=== PATIENT | female | born 1970 | race Caucasian/White ===

== ENCOUNTER 2019-07-16 15:44 | Emergency (ER) | payer OTHER, SELFPAY ==
--- NOTE | ~2019-07-16 | XR_ITS ---
EXAMINATION: XR chest 2V EXAM DATE: 07/16/2019 17:16 INDICATION: High blood pressure. Neck pain, shoulder pain. Hand paresthesia. TECHNIQUE: Frontal and lateral projections of the chest obtained and reviewed. Comparison is made to prior examination from 12/03/2018. FINDINGS: The lungs are clear. There are no pleural effusions. The cardiomediastinal silhouette is within normal limits. There is no pneumothorax suspected. The bones and soft tissues are unremarkab le. IMPRESSION: No acute cardiopulmonary findings. Reviewed, dictated and finalized at location A.
--- NOTE | ~2019-07-16 | CT_ITS ---
EXAMINATION: CT brain wo con EXAM DATE: 07/16/2019 17:09 INDICATION: Tingling to face, paresthesia. History of brain tumor. TECHNIQUE: Spiral CT of the head was performed without contrast. Axial, coronal and sagittal images were reviewed. The dose-length product (DLP) for this examination was 605.33 mGy-cm. The exposure w as tailored according to patient size, and iterative reconstruction (ASIR) was used as additional dos e reduction technique. There is no prior study for comparison. FINDINGS: There is a round heterogeneous density mass measuring 3.2 cm in the anterior aspect of the right temporal fossa which is most likely exophytic, displacing brain parenchyma, most likely a menin gioma but patient reportedly has known diagnosis so please clinically correlate. Prominent frontal extra-axial spaces. There is no acute intraparenchymal hemorrhage. No evidence of acute infarction. There is no mass effect or midline shift. The ventricles are normal in size. The re are no extra-axial collections. There are no acute calvarial fractures. The orbits are unremarkab le. Soft tissue is unremarkable. The visualized sinuses and mastoid air cells are well aerated. IMPRESSION: 1. No acute intracranial findings. 2. Right anterior temporal fossa mass most likely exophytic dural based meningioma. Clinical correla tion. Reviewed, dictated and finalized at location A. IMPRESSION: 1. No acute intracranial findings. 2. Right anterior temporal fossa mass most likely exophytic dural based mening ioma. Clinical correlation.
[2019-07-16 15:50] VITALS: BP 138/98; PULSE 100; RESP 18; TEMP 36.4; O2SAT 100
[2019-07-16 16:22] VITALS: BP 142/115; PULSE 59; RESP 22; O2SAT 100
--- NOTE | 2019-07-16 16:43 | ECG_ITS ---
Measurements Intervals [place] Rate: 79 P: 75 AL: 176 QRS: 17 QRSD: 84 T: 66 QT: 398 QTc: 456 Interpretive Statements SINUS RHYTHM DELAYED PRECORDIAL R/S TRANSITION BORDERLINE ST-T WAVE ABNORMALITY- LATERAL LEADS BASELINE WANDER- I, II, III BORDERLINE ECG Electronically Signed On 07-17-2019 7:03:42 CDT by Robbie Thomas D.O.
--- NOTE | 2019-07-16 16:44 | ED.GENADULT ---
HPI - General Adult General Chief complaint: Neuro Symptoms/Deficit Stated complaint: Tingling to Face Time Seen by Provider: 07/16/19 16:28 Source: patient Mode of arrival: ambulatory Limitations: no limitations History of Present Illness HPI narrative: Patient is a 48-year-old female with a history of meningioma who recently relocated to this area from [place] who presents for evaluation of muscle spasm, shoulder pain and neck pain. Patient reports she was raking leaves yesterday, onset of pain was today with severe worsening with movement. It is a sharp shooting pain in her right neck and arm. Patient reportedly with a history of meningioma that have been monitored in [place] every year, presents with new right shoulder pain, tingling sensation on the right side of her neck. No headache or vision changes. No nausea or vomiting. Patient reports bilateral muscle spasm in both hands, weakness and numbness in her lower legs. Patient denies chest pain or shortness of breath. No belly pain. Onset of symptoms approximately 3 hours ago. Related Data Home Medications Medication Instructions Recorded Confirmed amlodipine 07/16/19 atorvastatin 07/16/19 hydrochlorothiazide 07/16/19 hydrocodone-acetaminophen tablet 07/16/19 irbesartan mg 07/16/19 levothyroxine 07/16/19 lorazepam 07/16/19 venlafaxine mg PO 07/16/19 venlafaxine mg PO 07/16/19 Allergies Allergy/AdvReac Type Severity Reaction Status Date / Time Sulfa (Sulfonamide Allergy Unknown Verified 07/16/19 15:55 Antibiotics) Review of Systems Review of Systems: Narrative: CONSTITUTIONAL: Denies fever, chills, or sweats. EYES: Denies visual changes, redness, or discharge. ENT: Denies rhinorrhea, congestion, sore throat, or otalgia. CARDIOVASCULAR: Denies chest pain, palpitations, or edema. RESPIRATORY: Denies cough or dyspnea. GASTROINTESTINAL: Denies abdominal pain, nausea, vomiting, or diarrhea. GENITOURINARY: Denies dysuria or hematuria. SKIN: Denies rash or itching. MUSCULOSKELETAL: Denies back pain, reports right shoulder pain, reports myalgias, hand spasm bilaterally NEUROLOGIC: Denies headache, reports numbness and weakness in bilateral upper and lower extremities PSYCHIATRIC: Reports history of anxiety PMFSH Past Medical History Medical History (Updated 07/16/19 @ 20:54 by Tanja Solo MD) Anxiety Meningioma Surgical History Surgical History (Updated 07/16/19 @ 16:47 by Tanja Solo MD) H/O thyroidectomy H/O tubal ligation History of cholecystectomy Family History Family History (Updated 10/09/11 @ 11:52 by DOCTOR UNKNOWN) Other Diabetes mellitus Family history of elevated blood lipids Hypertension Social History Social History (Updated 07/16/19 @ 16:47 by Tanja Solo MD) Smoking status: Current every day smoker Alcohol intake: current Substance use: never Gender identity (if verbalized by the patient): Female Exam Narrative: Exam Narrative: GENERAL: Tearful, hyperventilating, alert HEAD: Normocephalic, atraumatic. EYES: PERRLA and EOMI. ENT: Nares clear, no rhinorrhea or epistaxis. Mucous membranes moist. NECK: Supple. CHEST: Tachypneic, no respiratory distress, hyperventilating HEART: Regular rate, sinus rhythm ABDOMEN:Non distended, non tender EXTREMITIES: Decreased range of motion bilateral hands, lower extremities, no edema. Bilateral hand contractures. Reproducible pain to the right trapezius which exactly reproduces muscle pain patient is experiencing. SKIN: Warm, dry, no rash. NEURO: Cannot complete [id number] bilaterally. EOMs intact without nystagmus. No facial droop/asymmetry noted bilaterally. Grimace intact. Intact sensation in face. Hearing intact bilaterally. Shoulder shrug intact. Strength 5/5 bilateral upper extremities. 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 Strength 5/5 bilateral lower extremities. Not complete [id number]. Ambulatory exam deferred. Course Марина
[2019-07-16] MEDS: LORAZEPAM INJ 2 MG/ML VIAL 1 MG IV PUSH (16:59)
[2019-07-16] MEDS: SODIUM CHLORIDE 0.9% IV 1,000 ML 999 ML IV CONT (16:59)
[2019-07-16 17:01] LABS: Basophils Absolute Auto 0.2 K/mm3 (0.0-0.1); Basophils Percent Auto 1.3 % (0.2-1.2); Eosinophils Absolute Auto 1.2 K/mm3 (0-0.3); Eosinophils Percent Auto 6.6 % (0-4.4); Hematocrit 49.6 % (37.0-47.0); Hemoglobin 16.8 g/dL (12.0-15.0); Immature Granulocyte Percent A 0.5 % (0-0.5); Lymphocytes Absolute Auto 5.01 K/mm3 (0.9-3.2); Lymphocytes Percent Auto 27.2 % (18.3-44.2); Mean Corpuscular HGB Conc 33.9 g/dl (32-36); Mean Corpuscular Hemoglobin 30.1 pg (26-34); Mean Corpuscular Volume 88.7 fl (80-100); Mean Platelet Volume 9.2 fl (7.4-10.4); Monocytes Absolute Auto 1.1 K/mm3 (0.1-0.6); Monocytes Percent Auto 5.7 % (2.6-8.5); Neutrophils Absolute Auto 10.8 K/mm3 (1.3-6.7); Neutrophils Percent Auto 58.7 % (45.5-73.1); Platelet Count Result 438 k/mm3 (150-375); Red Blood Count 5.59 M/mm3 (4.2-5.4); Red Cell Distribution Width 13.9 % (11.5-14.5); White Blood Count 18.4 K/mm3 (4.5-10.0)
[2019-07-16 17:11] LABS: Prothrombin Time 12.4 Seconds (11.1-14.7)
[2019-07-16 17:12] LABS: Partial Thromboplastin Time 28.5 SECONDS (22.3-36.8)
[2019-07-16 17:40] LABS: Alanine Aminotransferase 28 U/L (4-35); Alkaline Phosphatase 161 U/L (38-126); Aspartate Amino Transferase 29 U/L (14-36); Bilirubin,Total 0.7 mg/dL (0.2-1.3); Blood Urea Nitrogen 12 mg/dL (7-17); Calcium 10.4 mg/dL (8.4-10.2); Carbon Dioxide 24 mmol/L (22-30); Chloride 102 mmol/L (98-107); Estimated CRCL calculation 66 ml/min; Estimated Glomerular Filt Rate 59; Glucose 133 mg/dL (65-105); Potassium 3.5 mmol/L (3.4-5.0); Sodium 139 mmol/L (137-145)
[2019-07-16 17:49] LABS: Troponin I < 0.012 ng/mL (0.000-0.034)
[2019-07-16 17:58] VITALS: BP 152/76; PULSE 82; RESP 16; O2SAT 98
[2019-07-16 19:45] LABS: Add Urine Microscopic? NO; Appearance Urine Clear (Clear); Bilirubin Urine Negative (Negative); Blood Urine Negative (Negative); Color Urine Straw (Yellow); Glucose Urine UA Negative (Negative); Ketones Urine Negative (Negative); Leukocyte Esterase Ur Negative LEU/UL (Negative); Nitrate Urine Negative (Negative); Protein Urine Negative (Negative); Specific Grav Ur 1.011 (1.001-1.035); Urobilinogen Urine Negative mg/dL (<2.0)
[2019-07-16 20:17] VITALS: BP 148/76; PULSE 82; RESP 16; O2SAT 98
[2019-07-16] MEDS: DIAZEPAM 5 MG TABLET PO (20:59)
[2019-07-16 21:00] VITALS: BP 131/89; PULSE 69; RESP 15; O2SAT 99
[2019-07-16 21:15] VITALS: BP 137/91; PULSE 86; RESP 18; TEMP 36.8; O2SAT 98
== END 2019-07-16 21:16 | disposition home or self-care (01) ==
PROVIDERS: Emergency Medicine; Emergency Provider Emergency Medicine; PCP Emergency Medicine
DX: D32.9 Benign neoplasm of meninges, unspecified (principal); F41.9 Anxiety disorder, unspecified; E89.0 Postprocedural hypothyroidism; F17.200 Nicotine dependence, unspecified, uncomplicated; R94.31 Abnormal electrocardiogram [ECG] [EKG]
CPT/HCPCS: 36415; 70450; 71046; 80053; 81003; 84484; 85025; 85610; 85730; 93005; 96361; 96374; 96375; 99284; A9270; J1200; J2060; J7030

== ENCOUNTER 2019-09-13 09:40 | Outpatient (CLI) | payer OTHER, SELFPAY ==
--- NOTE | ~2019-09-13 | MR_ITS ---
EXAMINATION: MR brain/brain stem wo/w con DATE: 09/13/2019 10:41 INDICATION: Benign neoplasm of the cerebral meninges. TECHNIQUE: Magnetic resonance imaging (MRI) of the brain and brainstem was performed without and with 15 mL Multihance intravenous contrast. Sequences included sagittal and axial T1-weighted SE, axial d iffusion-weighted FS SE, axial T2*-weighted GRE, axial T2-weighted FLAIR, and axial T2-weighted FSE. Postcontrast axial, sagittal and coronal T1-weighted SE was obtained. Apparent diffusion coefficient (ADC) maps were created. COMPARISON: Head CT dated 07/26/2019 FINDINGS: There are no areas of restricted diffusion to suggest acute infarction. No intracranial hemorrhage. T here is an avidly enhancing 3.6 x 3.6 x 3.9 cm extra-axial dural-based mass in the right middle crani al fossa which demonstrates an enhancing dural tail most consistent with a meningioma. The lesion kecia sured 3.9 x 3.6 x 3.5 cm in corresponding dimensions on prior CT. No other abnormally enhancing lesio ns identified. Exerts mass effect upon the anterior right temporal lobe which appears otherwise unrem arkable with normal signal and bobby-white matter differentiation. There are no intraparenchymal signa l abnormalities seen on the other pulse sequences. The ventricles are symmetric and normal in size. T here are no abnormal extra-axial fluid collections. Flow voids are seen in the cerebral arteries on t he T2-weighted sequences consistent with their expected patency. Visualized orbits and soft tissues a re unremarkable. IMPRESSION: 1. No significant interval change in a 3.9 x 3.6 x 3.6 cm enhancing dural based mass in the right mid dle cranial fossa most consistent with a meningioma. Otherwise unremarkable brain MR. Reviewed, dictated and finalized at location A. IMPRESSION: 1. No significant interval change in a 3.9 x 3.6 x 3.6 cm enhancing dural based mass in the right middle cranial fossa most consistent with a meningioma. Othe rwise unremarkable brain MR.
[2019-09-13 10:15] LABS: Estimated Glomerular Filt Rate 59
== END 2019-09-13 09:41 | disposition home or self-care (01) ==
LOC: ANHIMG 09:50
PROVIDERS: PCP Emergency Medicine; Visit Provider Emergency Medicine
DX: D32.0 Benign neoplasm of cerebral meninges (principal)
CPT/HCPCS: 36415; 70553; A9577

== ENCOUNTER 2019-09-16 10:50 | Outpatient (CLI) | payer OTHER, SELFPAY ==
[2019-09-16 11:48] LABS: Basophils Absolute Auto 0.2 K/mm3 (0.0-0.1); Basophils Percent Auto 1.3 % (0.2-1.2); Eosinophils Absolute Auto 0.6 K/mm3 (0-0.3); Eosinophils Percent Auto 4.1 % (0-4.4); Hematocrit 47.4 % (37.0-47.0); Hemoglobin 15.3 g/dL (12.0-15.0); Immature Granulocyte Absolute 0.07 K/mm3 (0.00-0.031); Immature Granulocyte Percent A 0.5 % (0-0.5); Lymphocytes Absolute Auto 2.89 K/mm3 (0.9-3.2); Lymphocytes Percent Auto 20.5 % (18.3-44.2); Mean Corpuscular HGB Conc 32.3 g/dl (32-36); Mean Corpuscular Hemoglobin 30.1 pg (26-34); Mean Corpuscular Volume 93.1 fl (80-100); Mean Platelet Volume 8.8 fl (7.4-10.4); Monocytes Absolute Auto 0.8 K/mm3 (0.1-0.6); Monocytes Percent Auto 5.3 % (2.6-8.5); Neutrophils Absolute Auto 9.6 K/mm3 (1.3-6.7); Neutrophils Percent Auto 68.3 % (45.5-73.1); Platelet Count Result 316 k/mm3 (150-375); Red Blood Count 5.09 M/mm3 (4.2-5.4); Red Cell Distribution Width 14.3 % (11.5-14.5); White Blood Count 14.1 K/mm3 (4.5-10.0)
[2019-09-16 11:58] LABS: Add Urine Microscopic? NO; Appearance Urine Clear (Clear); Bacteria Urine Trace /hpf; Bilirubin Urine Negative (Negative); Blood Urine Negative (Negative); Color Urine Yellow (Yellow); Glucose Urine UA Negative (Negative); Ketones Urine Negative (Negative); Leukocyte Esterase Ur Negative LEU/UL (Negative); Mucus Urine Rare /lpf; Nitrate Urine Negative (Negative); Protein Urine Negative (Negative); RBC Urine 0-2 /hpf (0-2); Specific Grav Ur 1.018 (1.001-1.035); Squamous Epithelial Cell Urine Many /hpf (Few); Urobilinogen Urine Negative mg/dL (<2.0); WBC Urine 0-3 /hpf
[2019-09-16 12:04] LABS: Alanine Aminotransferase 37 U/L (4-35); Albumin Level 4.8 g/dL (3.5-5.1); Alkaline Phosphatase 121 U/L (38-126); Aspartate Amino Transferase 34 U/L (14-36); Bilirubin,Total 0.4 mg/dL (0.2-1.3); Blood Urea Nitrogen 15 mg/dL (7-17); Calcium 9.4 mg/dL (8.4-10.2); Carbon Dioxide 29 mmol/L (22-30); Chloride 105 mmol/L (98-107); Cholesterol 175 mg/dL (0-200); Creatine Kinase 62 U/L (30-135); Estimated Glomerular Filt Rate 59; Glucose 121 mg/dL (65-105); HDL Direct 34 mg/dL; Phosphorus 4.3 mg/dL (2.5-4.5); Sodium 143 mmol/L (137-145); Triglycerides 287 mg/dL (<150)
[2019-09-16 12:15] LABS: LDL Cholesterol Direct 86 mg/dL
[2019-09-16 12:24] LABS: Iron 81 ug/dL (37-170)
[2019-09-16 12:33] LABS: Percent Iron Saturation 24 % (20-50)
[2019-09-16 12:49] LABS: Parathyroid Intact 56.5 pg/mL (7.5-53.5); Vitamin D 25 Hydroxy 36.9 ng/mL
[2019-09-16 13:10] LABS: Folic Acid 13.3 ng/mL (2.76->20)
== END 2019-09-16 10:51 | disposition home or self-care (01) ==
LOC: ANHLAB 10:55
PROVIDERS: PCP Emergency Medicine; Visit Provider Emergency Medicine
DX: D32.0 Benign neoplasm of cerebral meninges (principal); D72.829 Elevated white blood cell count, unspecified; D75.1 Secondary polycythemia; E03.9 Hypothyroidism, unspecified; E55.9 Vitamin D deficiency, unspecified; E78.5 Hyperlipidemia, unspecified; F41.1 Generalized anxiety disorder; G89.4 Chronic pain syndrome; I10 Essential (primary) hypertension
CPT/HCPCS: 36415; 80061; 80069; 80076; 81003; 82306; 82330; 82550; 82607; 82728; 82746; 83540; 83550; 83735; 83970; 84443; 85025

== ENCOUNTER 2019-12-08 11:02 | Outpatient (CLI) | payer OTHER, SELFPAY ==
[2019-12-08 11:53] LABS: Hemoglobin A1C 5.8 % (<5.7)
[2019-12-08 11:57] LABS: Alanine Aminotransferase 60 U/L (4-35); Albumin Level 4.3 g/dL (3.5-5.1); Alkaline Phosphatase 128 U/L (38-126); Aspartate Amino Transferase 44 U/L (14-36); Bilirubin,Total 0.4 mg/dL (0.2-1.3); Glucose 123 mg/dL (65-105)
[2019-12-08 12:09] LABS: Parathyroid Intact 60.3 pg/mL (7.5-53.5)
[2019-12-10 17:52] LABS: Hepatitis C Viral RNA PCR 16 IU/mL
== END 2019-12-08 11:03 | disposition home or self-care (01) ==
PROVIDERS: PCP Emergency Medicine; Visit Provider Emergency Medicine
DX: K76.9 Liver disease, unspecified (principal); R73.9 Hyperglycemia, unspecified
CPT/HCPCS: 36415; 80076; 82947; 83036; 83970; 87522

== ENCOUNTER 2020-01-05 09:05 | Outpatient (CLI) | payer OTHER, SELFPAY ==
--- NOTE | ~2020-01-05 | US_ITS ---
EXAMINATION: US abdomen complete DATE: 01/05/2020 10:16 INDICATION: Liver disease TECHNIQUE: Multiple grayscale and Doppler ultrasound images of the abdomen were obtained. COMPARISON: None FINDINGS: Visualized portion of the body of the pancreas is normal. The pancreatic head and tail are not visual ized. Visualized proximal inferior vena cava is normal. Liver has normal contour, with a smooth surfa ce. There is increased parenchymal echogenicity and coarsened echotexture consistent with diffuse hep atic steatosis. No liver lesion identified. No intrahepatic biliary duct dilation suspected. Portal venous flow was seen in the hepatopetal, normal direction and has normal Doppler waveform. Gallbladde r is not visualized and reportedly surgically absent. The common bile duct measures up to 7 mm diamet er which is within normal limits post cholecystectomy. Atherosclerotic abdominal aorta is normal in d iameter measuring 3.4 similar approximately tapering to 1.8 cm distally. Portions of the mid aorta ob scured by shadowing bowel gas. There is normal renal contour and echogenicity bilaterally. The right kidney measures 9.1 x 4.5 x 5.1 cm and the left 10.6 x 5.2 x 5.8 cm. There are no focal renal lesion s identified. There is no hydronephrosis. Spleen is normal measuring 4.3 cm in maximal length. IMPRESSION: 1. Diffuse hepatic steatosis. 2. Mild dilation of the common bile duct to 7 mm which is within normal limits post cholecystectomy. Reviewed, dictated and finalized at location B.
== END 2020-01-05 09:06 | disposition home or self-care (01) ==
PROVIDERS: PCP Emergency Medicine; Visit Provider Emergency Medicine
DX: K76.9 Liver disease, unspecified (principal); K76.0 Fatty (change of) liver, not elsewhere classified; Z90.49 Acquired absence of other specified parts of digestive tract
CPT/HCPCS: 76700

== ENCOUNTER 2020-03-10 17:45 | Emergency (ER) | payer OTHER, SELFPAY ==
--- NOTE | ~2020-03-10 | CT_ITS ---
EXAMINATION: CTA chest PE protocol DATE: 03/10/2020 19:38 INDICATION: Shortness of breath TECHNIQUE: Computed tomography angiography (CTA) of the chest was performed with 100 mL Omnipaque-350 intravenous contrast timed to evaluate the pulmonary arteries. Coronal maximum intensity projection 3D-reconstructions were created by the technologist. The dose-length product (DLP) was 990.92 mGy-cm. Automated exposure control and iterative reconstruction technique were employed. COMPARISON: None. FINDINGS: The pulmonary arteries are well-opacified. No pulmonary embolism is identified. There are p atchy airspace opacities of the right lower lobe. Dependent atelectasis is noted. A calcified nodule of the left upper lobe is consistent with old granulomatous disease. There is no pleural effusion or pneumothorax. No pathologically enlarged thoracic lymph nodes are identified. The heart size is araceli l. The gallbladder is surgically absent. There is mild thoracic spondylosis. IMPRESSION: 1. No pulmonary embolism. 2. Patchy right lower lobe airspace opacities, likely infectious or inflammatory. Reviewed, dictated and finalized at location A. KKEEPER IMPRESSION: 1. No pulmonary embolism. 2. Patchy right lower lobe airspace opacities, likely infectious or inflammator y.
[2020-03-10 17:51] VITALS: BP 132/90; PULSE 91; RESP 17; TEMP 36.3; O2SAT 100
--- NOTE | 2020-03-10 18:21 | ECG_ITS ---
Measurements Intervals [place] Rate: 60 P: [place]: 0 QRS: 72 QRSD: 85 T: 69 QT: 406 QTc: 408 Interpretive Statements SINUS OR ECTOPIC ATRIAL RHYTHM BASELINE ARTIFACT- I, II, AVR, AVF, V4-V6 BORDERLINE ECG Electronically Signed On 03-11-2020 8:00:29 STEEL LAYOUT WORKER by Robbie Thomas D.O.
--- NOTE | 2020-03-10 18:23 | ED.LOWEXIN ---
HPI - Extremity Injury (Lower) General Chief Complaint: Extremity Problem,Nontraumatic Stated Complaint: r leg swelling Time Seen by Provider: 03/10/20 18:04 Source: patient Mode of arrival: ambulatory Limitations: no limitations History of Present Illness HPI Narrative: Patient is a 49-year-old female who presents with right leg pain and swelling noting swelling to involve the majority of the right leg patient with history of tobacco abuse and was recently on bedrest with Covid. Patient notes that her URI symptoms have resolved patient presents with concern for DVT denies history of DVT patient was referred to the emergency department by Dr. Mahoney. Related Data Home Medications Medication Instructions Recorded Confirmed amlodipine 07/16/19 atorvastatin 07/16/19 hydrocodone-acetaminophen tablet 07/16/19 levothyroxine 07/16/19 lorazepam 03/10/20 venlafaxine mg PO 03/10/20 venlafaxine mg PO 03/10/20 Allergies Allergy/AdvReac Type Severity Reaction Status Date / Time Sulfa (Sulfonamide Allergy Unknown Verified 03/10/20 17:55 Antibiotics) Review of Systems Review of Systems: All systems reviewed & are unremarkable except as noted in HPI and below PMFSH Past Medical History Medical History Anxiety Meningioma Surgical History Surgical History H/O thyroidectomy H/O tubal ligation History of cholecystectomy Family History Family History (Updated 10/09/11 @ 11:52 by DOCTOR UNKNOWN) Other Diabetes mellitus Family history of elevated blood lipids Hypertension Social History Social History Smoking status: Current every day smoker Alcohol intake: current Substance use: never Gender identity (if verbalized by the patient): Female Exam Narrative: Exam Narrative: GENERAL: Well-appearing, well-nourished, and in no acute distress. HEAD: Normocephalic, atraumatic. EYES: PERRLA and EOMI. ENT: Nares clear, no rhinorrhea or epistaxis. Mucous membranes moist. CHEST: Clear to auscultation. No respiratory distress. No wheezes rales or rhonchi HEART: Regular rate and rhythm. No murmur heard. Normal peripheral pulses. ABDOMEN: Soft, nontender, nondistended EXTREMITIES: Normal range of motion. 2+ edema of the right lower extremity. 1+ edema left lower extremity SKIN: Warm, dry, no rash. NEURO: No focal deficits. Alert and oriented x3. Cranial nerves II through XII grossly intact. Neurovascularly intact PSYCH: Normal mood and affect. Course Course Emergency Course: Patient in the room evaluated found to not have PE with likely resolving postinfectious. On the imaging patient will be set up for Doppler in the morning was given Lovenox no other high risk changes in the blood work or imaging Vital Signs Vital signs: Vital Signs Temperature 97.4 F L 03/10/20 17:51 Pulse Rate 91 03/10/20 17:51 Respiratory Rate 17 03/10/20 17:51 Blood Pressure 132/90 03/10/20 17:51 Pulse Oximetry 100 03/10/20 17:51 Temperature 97.4 F L 03/10/20 17:51 Pulse Rate 71 03/10/20 19:13 Respiratory Rate 14 03/10/20 19:13 Blood Pressure 122/82 03/10/20 19:13 Pulse Oximetry 97 03/10/20 19:13 MDM - Extremity Injury (Lower) Lab Data Result diagrams: 03/10/20 18:40 03/10/20 18:40 Labs: Lab Results 03/10/20 03/10/20 03/10/20 Range/Units 18:40 18:40 18:40 WBC 10.7 H (4.5-10.0) K/mm3 RBC 4.53 (4.2-5.4) M/mm3 Hgb 13.9 (12.0-15.0) g/dL Hct 42.2 (37.0-47.0) % MCV 93.2 (80-100) fl MCH 30.7 (26-34) pg MCHC 32.9 (32-36) g/dl RDW 14.1 (11.5-14.5) % Plt Count 275 (150-375) k/mm3 MPV 8.7 (7.4-10.4) fl Immature Gran % (Auto) 0.7 H (0-0.5) % Neut % (Auto) 59.6 (45.5-73.1) % Lymph % (Auto) 28.9 (18.3-44.2) % [place] %
[2020-03-10 18:45] LABS: Basophils Absolute Auto 0.2 K/mm3 (0.0-0.1); Basophils Percent Auto 1.9 % (0.2-1.2); Eosinophils Absolute Auto 0.4 K/mm3 (0-0.3); Eosinophils Percent Auto 3.7 % (0-4.4); Hematocrit 42.2 % (37.0-47.0); Hemoglobin 13.9 g/dL (12.0-15.0); Immature Granulocyte Absolute 0.07 K/mm3 (0.00-0.031); Immature Granulocyte Percent A 0.7 % (0-0.5); Lymphocytes Absolute Auto 3.08 K/mm3 (0.9-3.2); Lymphocytes Percent Auto 28.9 % (18.3-44.2); Mean Corpuscular HGB Conc 32.9 g/dl (32-36); Mean Corpuscular Hemoglobin 30.7 pg (26-34); Mean Corpuscular Volume 93.2 fl (80-100); Mean Platelet Volume 8.7 fl (7.4-10.4); Monocytes Absolute Auto 0.6 K/mm3 (0.1-0.6); Monocytes Percent Auto 5.2 % (2.6-8.5); Neutrophils Absolute Auto 6.4 K/mm3 (1.3-6.7); Neutrophils Percent Auto 59.6 % (45.5-73.1); Platelet Count Result 275 k/mm3 (150-375); Red Blood Count 4.53 M/mm3 (4.2-5.4); Red Cell Distribution Width 14.1 % (11.5-14.5); White Blood Count 10.7 K/mm3 (4.5-10.0)
[2020-03-10 18:55] LABS: INR 0.9; Partial Thromboplastin Time 29.7 SECONDS (22.3-36.8); Prothrombin Time 12.4 Seconds (11.1-14.7)
[2020-03-10 18:59] LABS: Anion Gap 4 mmol/L (8-16); Blood Urea Nitrogen 7 mg/dL (7-17); Calcium 8.9 mg/dL (8.4-10.2); Carbon Dioxide 34 mmol/L (22-30); Chloride 101 mmol/L (98-107); Estimated CRCL calculation 84 ml/min; Estimated Glomerular Filt Rate > 60; Glucose 156 mg/dL (65-105); Potassium 3.5 mmol/L (3.4-5.0); Sodium 139 mmol/L (137-145)
[2020-03-10 19:13] VITALS: BP 122/82; PULSE 71; RESP 14; O2SAT 97
[2020-03-10 20:38] VITALS: BP 122/82; PULSE 81; RESP 14; O2SAT 96
[2020-03-10] MEDS: ENOXAPARIN 120 MG/0.8 ML SYRINGE 109 MG SUB-Q (20:41)
== END 2020-03-10 20:56 | disposition home or self-care (01) ==
PROVIDERS: Emergency Medicine Emergency Medical Services; Emergency Provider Emergency Medicine; PCP Emergency Medicine
DX: F41.9 Anxiety disorder, unspecified (principal); E89.0 Postprocedural hypothyroidism; Z86.19 Personal history of other infectious and parasitic diseases; F17.200 Nicotine dependence, unspecified, uncomplicated; R94.31 Abnormal electrocardiogram [ECG] [EKG]; R91.8 Other nonspecific abnormal finding of lung field
CPT/HCPCS: 36415; 71275; 80048; 85025; 85610; 85730; 93005; 96372; 99284; J1650; Q9967

== ENCOUNTER 2020-03-11 08:29 | Outpatient (CLI) | payer OTHER, SELFPAY ==
--- NOTE | ~2020-03-11 | US_ITS ---
EXAMINATION: US venous doppler LE RT DATE: 03/11/2020 09:37 INDICATION: Right lower limb pain. COVID positive. TECHNIQUE: Grayscale ultrasound images without and with compression and Doppler ultrasound images of the right lower extremity veins were obtained. COMPARISON: None. FINDINGS: Noncompressible occlusive appearing deep venous spondylosis at both the right posterior tibial veins at the right calf. The visualized portions of right common femoral vein, profunda (deep) femoral vein , femoral vein, popliteal vein, peroneal veins, gastrocnemius vein and greater saphenous vein outflow are patent. IMPRESSION: 1. [id number] deep venous thrombosis in the paired posterior tibial veins at the right calf. Reviewed, dictated and finalized at location A. T POTATO DISINTEGRATOR IMPRESSION: 1. [id number] deep venous thrombosis in the paired posterior tibial veins at the right calf.
== END 2020-03-11 08:30 | disposition home or self-care (01) ==
PROVIDERS: PCP Emergency Medicine; Visit Provider Emergency Medicine
DX: I82.441 Acute embolism and thrombosis of right tibial vein (principal)
CPT/HCPCS: 93971

== ENCOUNTER 2020-03-11 10:07 | Emergency (ER) | payer OTHER, SELFPAY ==
[2020-03-11 10:17] VITALS: BP 129/94; PULSE 86; RESP 18; TEMP 36.7; O2SAT 96
[2020-03-11] MEDS: APIXABAN 5 MG TABLET 10 MG PO (11:25)
--- NOTE | 2020-03-11 11:47 | ED.LOWEXIN ---
HPI - Extremity Injury (Lower) General Chief Complaint: Extremity Injury, Lower <Jaime Ortiz PA-C - Last Filed: 03/11/20 11:52> Stated Complaint: positive venous doppler <Jaime Ortiz PA-C - Last Filed: 03/11/20 11:52> Time Seen by Provider: 03/11/20 10:11 <Jaime Ortiz PA-C - Last Filed: 03/11/20 11:52> Source: patient and old records reviewed <Jaime Ortiz PA-C - Last Filed: 03/11/20 11:52> Mode of arrival: ambulatory <Jaime Ortiz PA-C - Last Filed: 03/11/20 11:52> Limitations: no limitations <Jaime Ortiz PA-C - Last Filed: 03/11/20 11:52> History of Present Illness HPI Narrative: Patient is a 49-year-old female who presents to emergency department for evaluation of DVT found on ultrasound this morning patient had developed swelling over the last couple of days patient on arrival to emergency department denies any symptoms or complaints specifically no chest pain shortness of breath lightheadedness dizziness <Jaime Ortiz PA-C - Last Filed: 03/11/20 11:52> Related Data Home Medications: Home Medications Medication Instructions Recorded Confirmed amlodipine 07/16/19 atorvastatin 07/16/19 hydrocodone-acetaminophen tablet 07/16/19 levothyroxine 07/16/19 lorazepam 03/10/20 venlafaxine mg PO 03/10/20 venlafaxine mg PO 03/10/20 <MARIANO Cooper Last Filed: 03/11/20 11:52> Allergies/Adverse Reactions: Allergies Allergy/AdvReac Type Severity Reaction Status Date / Time Sulfa (Sulfonamide Allergy Unknown Verified 03/11/20 10:23 Antibiotics) <Jaime Ortiz PA-C - Last Filed: 03/11/20 11:52> Review of Systems Review of Systems: All systems reviewed & are unremarkable except as noted in HPI and below <Jaime Ortiz PA-C - Last Filed: 03/11/20 11:52> PMFSH Past Medical History Medical History: Medical History Anxiety Meningioma <Jaime Ortiz PA-C - Last Filed: 03/11/20 11:52> Surgical History Surgical History: Surgical History H/O thyroidectomy H/O tubal ligation History of cholecystectomy <Jaime Ortiz PA-C - Last Filed: 03/11/20 11:52> Family History Family History: Family History (Updated 10/09/11 @ 11:52 by DOCTOR UNKNOWN) Other Diabetes mellitus Family history of elevated blood lipids Hypertension <Jaime Ortiz PA-C - Last Filed: 03/11/20 11:52> Social History Social History: Social History Smoking status: Current every day smoker Alcohol intake: current Substance use: never Gender identity (if verbalized by the patient): Female <Jaime Ortiz PA-C - Last Filed: 03/11/20 11:52> Exam Narrative: Exam Narrative: GENERAL: Well-appearing, well-nourished, and in no acute distress. HEAD: Normocephalic, atraumatic. EYES: PERRLA and EOMI. ENT: Nares clear, no rhinorrhea or epistaxis. Mucous membranes moist. CHEST: Clear to auscultation. No respiratory distress. No wheezes rales or rhonchi HEART: Regular rate and rhythm. No murmur heard. Normal peripheral pulses. EXTREMITIES: Normal range of motion. 2+ edema right lower extremity SKIN: Warm, dry, no rash. NEURO: No focal deficits. Alert and oriented x3. Cranial nerves II through XII grossly intact PSYCH: Normal mood and affect. <Jaime Ortiz PA-C - Last Filed: 03/11/20 11:52> Course Course Emergency Course: Patient was given Eliquis will be started on this medication was given a coupon for 30-day supply patient will follow with primary care felt appropriate for outpatient reevaluation <MARIANO Cooper Last Filed: 03/11/20 11:52> Consultations Consultation #1: Discussed case with primary care Dr. Mahoney who will follow patient in clinic <MARIANO Cooper Last Filed
[2020-03-11 12:02] VITALS: BP 127/86; PULSE 82; RESP 19; O2SAT 100
== END 2020-03-11 12:04 | disposition home or self-care (01) ==
PROVIDERS: Emergency Provider Emergency Medicine; PCP Emergency Medicine
DX: I82.401 Acute embolism and thrombosis of unspecified deep veins of right lower extremity (principal); F41.9 Anxiety disorder, unspecified; E89.0 Postprocedural hypothyroidism; F17.200 Nicotine dependence, unspecified, uncomplicated
CPT/HCPCS: 93971; 99283; A9270

== ENCOUNTER 2020-05-17 16:12 | Emergency (ER) | payer OTHER, SELFPAY ==
[2020-05-17 16:25] VITALS: BP 126/73; PULSE 75; RESP 20; TEMP 36.4; O2SAT 97
--- NOTE | 2020-05-17 18:29 | PC.NURSE ---
pt reports that she is going to go home and come back in the early am. she reports not new changes and will return if worsens.
== END 2020-05-17 22:00 | disposition left against medical advice (07) ==
LOC: ANHED 18:54
PROVIDERS: PCP Emergency Medicine
DX: M79.89 Other specified soft tissue disorders (principal)
CPT/HCPCS: 99199

== ENCOUNTER 2020-05-18 18:47 | Emergency (ER) | payer OTHER, SELFPAY ==
[2020-05-18 19:10] VITALS: BP 133/83; PULSE 93; RESP 18; TEMP 36.2; O2SAT 95
[2020-05-18 19:28] LABS: Basophils Absolute Auto 0.2 K/mm3 (0.0-0.1); Basophils Percent Auto 1.8 % (0.2-1.2); Eosinophils Absolute Auto 0.5 K/mm3 (0-0.3); Eosinophils Percent Auto 4.7 % (0-4.4); Hematocrit 43.6 % (37.0-47.0); Hemoglobin 14.2 g/dL (12.0-15.0); Immature Granulocyte Absolute 0.04 K/mm3 (0.00-0.031); Immature Granulocyte Percent A 0.4 % (0-0.5); Lymphocytes Absolute Auto 3.28 K/mm3 (0.9-3.2); Lymphocytes Percent Auto 34.6 % (18.3-44.2); Mean Corpuscular HGB Conc 32.6 g/dl (32-36); Mean Corpuscular Hemoglobin 31.1 pg (26-34); Mean Corpuscular Volume 95.6 fl (80-100); Mean Platelet Volume 8.7 fl (7.4-10.4); Monocytes Absolute Auto 0.6 K/mm3 (0.1-0.6); Monocytes Percent Auto 6.3 % (2.6-8.5); Neutrophils Percent Auto 52.2 % (45.5-73.1); Platelet Count Result 263 k/mm3 (150-375); Red Blood Count 4.56 M/mm3 (4.2-5.4); Red Cell Distribution Width 14.6 % (11.5-14.5); White Blood Count 9.5 K/mm3 (4.5-10.0)
[2020-05-18 19:39] LABS: INR 0.9
[2020-05-18 19:40] LABS: Partial Thromboplastin Time 32.5 SECONDS (22.3-36.8)
[2020-05-18 19:42] LABS: Alanine Aminotransferase 29 U/L (4-35); Albumin Level 4.1 g/dL (3.5-5.1); Alkaline Phosphatase 85 U/L (38-126); Anion Gap 5 mmol/L (8-16); Aspartate Amino Transferase 32 U/L (14-36); Bilirubin,Total 0.4 mg/dL (0.2-1.3); Blood Urea Nitrogen 15 mg/dL (7-17); Calcium 8.9 mg/dL (8.4-10.2); Carbon Dioxide 33 mmol/L (22-30); Chloride 103 mmol/L (98-107); Estimated CRCL calculation 60 ml/min; Estimated Glomerular Filt Rate 53; Glucose 156 mg/dL (65-105); Sodium 141 mmol/L (137-145)
[2020-05-18 19:45] VITALS: BP 129/98; PULSE 72; RESP 18; O2SAT 98
--- NOTE | 2020-05-18 20:07 | ED.GENADULT ---
HPI - General Adult General Chief complaint: Recheck/Abnormal Lab/Rx Stated complaint: ?Blood Clots Time Seen by Provider: 05/18/20 19:24 Source: patient Mode of arrival: ambulatory Limitations: no limitations History of Present Illness HPI narrative: Patient presents with chief complaint of swelling in her lower legs that improves when she elevates them. Patient states her primary care is not seeing patients and the office especially people who have had Covid in the past such as her. Patient states that she had a DVT in the past so she was started on Eliquis and she has been on it for months without skipping any doses. She denies any pain in her calf or swelling, erythema or ecchymosis in the left calf. She states that she does have a bruise on her leg. Patient denies any chest pain or shortness of breath. Patient states that she was told to come to the emergency department for a ultrasound of her left leg almost a week ago, but decided to come after seeing the bruise on the outside of her leg. Related Data Home Medications Medication Instructions Recorded Confirmed amlodipine 07/16/19 atorvastatin 07/16/19 hydrocodone-acetaminophen tablet 07/16/19 levothyroxine 07/16/19 lorazepam 03/10/20 venlafaxine mg PO 03/10/20 venlafaxine mg PO 03/10/20 Allergies Allergy/AdvReac Type Severity Reaction Status Date / Time Sulfa (Sulfonamide Allergy Unknown Verified 05/18/20 19:09 Antibiotics) Review of Systems Review of Systems: Narrative: CONSTITUTIONAL: Denies fever, chills, or sweats. EYES: Denies visual changes, redness, or discharge. ENT: Denies rhinorrhea, congestion, sore throat, or otalgia. CARDIOVASCULAR: Denies chest pain, palpitations, or edema. RESPIRATORY: Denies cough or dyspnea. GASTROINTESTINAL: Denies abdominal pain, nausea, vomiting, or diarrhea. GENITOURINARY: Denies dysuria or hematuria. SKIN: Reports bruise denies rash or itching. MUSCULOSKELETAL: Reports intermittent leg swelling denies back pain, joint pain, or myalgia. NEUROLOGIC: Denies headache, numbness, dizziness, or weakness. PSYCHIATRIC: Denies anxiety or depression. [facility] Past Medical History Medical History Anxiety Meningioma Surgical History Surgical History H/O thyroidectomy H/O tubal ligation History of cholecystectomy Family History Family History (Updated 10/09/11 @ 11:52 by DOCTOR UNKNOWN) Other Diabetes mellitus Family history of elevated blood lipids Hypertension Social History Social History Smoking status: Current every day smoker Alcohol intake: current Substance use: never Gender identity (if verbalized by the patient): Female Sexual Orientation (if Verbalized by the Patient): Straight or Heterosexual Exam Narrative: Exam Narrative: GENERAL: Well-appearing, well-nourished, and in no acute distress. HEAD: Normocephalic, atraumatic. EYES: PERRLA and EOMI. NECK: Supple. No adenopathy or masses. CHEST: Clear to auscultation. No respiratory distress. No wheezes rales or rhonchi HEART: Regular rate and rhythm. No murmur heard. Normal peripheral pulses. ABDOMEN: Soft, nontender, nondistended, normal active bowel sounds. EXTREMITIES: Normal range of motion. calf swelling or tightness. Negative sarah's sign. No erythema or ecchymosis.Patient has some signs of varicosities to legs with faint swelling bilaterally but non pitting. SKIN: Warm, dry, no rash. NEURO: No focal deficits. Alert and oriented x3. PSYCH: Normal mood and affect. Course Vital Signs Vital signs: Vital Signs Temperature 97.2 F L 05/18/20 19:10 Pulse Rate 93 05/18/20 19:10 Respiratory Rate 18 05/18/20 19:10 Blood Pressure 133/83 05/18/20 19:10 Pulse Oximetry 95 05/18/20 19:10 Temperature 97.2 F L 05/18/20 19:10 Pulse Rate
[2020-05-18 20:24] VITALS: BP 124/84; PULSE 72; RESP 18; O2SAT 97
== END 2020-05-18 20:26 | disposition home or self-care (01) ==
PROVIDERS: Emergency Medicine; Emergency Provider Emergency Medicine; PCP Emergency Medicine
DX: I87.2 Venous insufficiency (chronic) (peripheral) (principal); R60.0 Localized edema; E89.0 Postprocedural hypothyroidism
CPT/HCPCS: 36415; 80053; 85025; 85610; 85730; 99283

== ENCOUNTER 2020-06-12 22:00 | Emergency (ER) | payer OTHER, SELFPAY ==
[2020-06-12 22:03] VITALS: BP 136/75; PULSE 86; RESP 18; TEMP 36.4; O2SAT 98
--- NOTE | 2020-06-13 03:37 | ED.EYEPROB ---
HPI - Eye Problem General Chief complaint: Eye Problems Stated complaint: rt eye swollen Time Seen by Provider: 06/13/20 03:31 Source: patient Mode of arrival: ambulatory Limitations: no limitations History of Present Illness HPI Narrative: Patient is a 49-year-old female complaining of right eyelid swelling, I have a stye that started 3 days ago. Patient denies any injury. Patient denies any visual disturbance. Patient has no other complaints. Related Data Home Medications Medication Instructions Recorded Confirmed amlodipine 07/16/19 atorvastatin 07/16/19 hydrocodone-acetaminophen tablet 07/16/19 levothyroxine 07/16/19 lorazepam 03/10/20 venlafaxine mg PO 03/10/20 venlafaxine mg PO 03/10/20 Allergies Allergy/AdvReac Type Severity Reaction Status Date / Time Sulfa (Sulfonamide Allergy Unknown Verified 06/12/20 22:06 Antibiotics) Review of Systems Review of Systems: All systems reviewed & are unremarkable except as noted in HPI and below PMFSH Past Medical History Medical History Anxiety Meningioma Surgical History Surgical History H/O thyroidectomy H/O tubal ligation History of cholecystectomy Family History Family History Other Diabetes mellitus Family history of elevated blood lipids Hypertension Social History Social History Smoking status: Current every day smoker Alcohol intake: current Substance use: never Gender identity (if verbalized by the patient): Female Exam Const: General: healthy appearing, no acute distress and alert Orientation/consciousness: patient oriented x3 HENMT: Head: no contusions and no hematomas General nose exam: external nose not normal Face and sinus: sinuses tender and no sinus tenderness Mouth: No lip normal Other: Right upper lid swelling. Clear conjunctiva. Eyes: Conjunctivae: conjunctivae normal Pupils: Equal, round and reactive pupils present EOM: EOMs intact bilaterally Direct Ophthalmoscopy: no photophobia Course Vital Signs Vital signs: Vital Signs Temperature 36.4 C 06/12/20 22:03 Pulse Rate 86 06/12/20 22:03 Respiratory Rate 18 06/12/20 22:03 Blood Pressure 136/75 06/12/20 22:03 Pulse Oximetry 98 06/12/20 22:03 Temperature 36.4 C 06/12/20 22:03 Pulse Rate 86 06/12/20 22:03 Respiratory Rate 18 06/12/20 22:03 Blood Pressure 136/75 06/12/20 22:03 Pulse Oximetry 98 06/12/20 22:03 MDM - Eye Problem Differential Diagnosis Differential diagnosis: Likely corneal abrasion, conjunctivitis and other (Stye) Discharge Plan Discharge Clinical Impression: External hordeolum Qualifiers: Laterality: right Eyelid: upper Qualified Code(s): H00.011 - Hordeolum externum right upper eyelid Patient Disposition: Home, Self-Care Condition: Stable Instructions: Antibiotic Form, Jer (ED) Prescriptions: New erythromycin 5 mg/gram (0.5 %) ointment 1 applic RIGHT EYE 6XD 7 Days Qty: 3.5 RF: 0 No Action atorvastatin 40 mg tablet RF: 0 hydrocodone-acetaminophen 10-325 mg tablet RF: 0 levothyroxine 100 mcg tablet RF: 0 amlodipine 10 mg tablet RF: 0 acetaminophen 500 mg capsule 500 mg PO Q6H PRN (Reason: fever or pain) Qty: 30 RF: 0 Eliquis DVT-PE Treat 30D Start 5 mg (74 tabs) tablets,dose pack See Rx Instructions .ROUTE .COMPLEX Qty: 74 RF: 0 venlafaxine 75 mg capsule,extended release 24hr PO RF: 0 venlafaxine 150 mg capsule,extended release 24hr PO RF: 0 lorazepam 1 mg tablet RF: 0 Follow-up/Referrals: Tevin Mahoney MD [Primary Care Provider] - 06/14/20 Time of Disposition: 03:43
--- NOTE | 2020-06-13 04:12 | PC.NURSE ---
Pt presents to ED with complaints of right eye pain that onset two days ago. Pt states as the days progressed, swelling of eye increased. Pt state she has been experiencing clear drainage from eye. Pt denies fever, chills, nvd. 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 Pt ambulated to restroom with steady gait. Breathing noted to be even and unlabored and vitals are stable. Pt advised to press call button for assistance.
[2020-06-13] MEDS: ERYTHROMYCIN OPHTH OINTMENT 1 GM TUBE 1 APPLIC EACH EYE (04:21)
--- NOTE | 2020-06-13 04:21 | PC.NURSE ---
Pt aware of poc and and advised to administer abt ointment as directed and to follow. Pt voices her understanding.
[2020-06-13 04:22] VITALS: BP 145/91; PULSE 79; RESP 18; TEMP 36.9; O2SAT 96
== END 2020-06-13 04:39 | disposition home or self-care (01) ==
PROVIDERS: Emergency Provider Emergency Medicine; PCP Emergency Medicine
DX: H00.011 Hordeolum externum right upper eyelid (principal); F41.9 Anxiety disorder, unspecified; E89.0 Postprocedural hypothyroidism; F17.200 Nicotine dependence, unspecified, uncomplicated
CPT/HCPCS: 99283; A9270

== ENCOUNTER 2020-08-20 10:51 | Outpatient (CLI) | payer OTHER, SELFPAY ==
--- NOTE | ~2020-08-20 | DEXA_ITS ---
Bone Density Report Name: Maria Isabel Arreola Age: 50 Sex: Female Ethnicity: White Date of : 1970 Indication: postmenopausal; cancer; Referring Provider: PATY SANCHEZ Study: Bone densitometry was performed. Exam Date: August 20, 2020 Accession number: [id number] Bone Density: Region BMD T-score Z-score Classification AP Spine (L1-L4) 0.918 -1.2 -0.4 Osteopenia Femoral Neck (Left) 0.679 -1.5 -0.8 Osteopenia Total Hip (Left) 0.917 -0.2 0.3 Normal Total Hip Bilateral Avg 0.894 -0.4 0.1 Normal Femoral Neck (Right) 0.731 -1.1 -0.3 Osteopenia Total Hip (Right) 0.869 -0.6 -0.1 Normal World Health Organization criteria for BMD impression classify patients as: Normal (T-score at or above -1.0), Osteopenia (T-score between -1.0 and -2.5), or Osteoporosis (T-score at or below -2.5). 10-year Fracture Risk(1): Major Osteoporotic Fracture 4.3% Hip Fracture 0.6% Reported Risk Factors: [place] (), Neck BMD=0.679, BMI=34.3, smoking (1) FRAX(R) Version 3.08. Fracture probability calculated for an untreated patient. Fracture probability may be lower if the patient has received treatment. Clinical Information Provided by Patient: Smokes Has the following medical conditions: Cancer Patient maximum height was 64 Menopause Age: 40 No regular weight bearing exercise Drinks caffeinated beverages Onset of menses at age 13 Number of children 3 Impression: The patient has low bone mass, based on the Left Femoral Neck T-score. The patient has an estimated ten-year risk of hip fracture of 0.6% and an estimated ten-year risk of major fracture of 4.3%, based on the WHO FRAX algorithm. The patient has risk factors, including: smoking. Discussion: BONE DENSITY IS LOW AT ONE OR MORE SKELETAL SITES. This patient's lowest T-score is low at one or more skeletal sites. It meets the World Health Organization's (WHO) criteria for ?low bone mass? (T-score between -1.0 and -2.5). The patient's 10-year risk of fracture as calculated by FRAX is less than the threshold where pharmacological therapy is recommended by the National Osteoporosis Foundation (NOF). However, all treatment decisions require clinical judgment and consideration of individual patient factors, including patient preferences, comorbidities, previous drug use, risk factors not captured in the FRAX model (e.g., frailty, falls, vitamin D deficiency, increased bone turnover, interval significant decline in bone density) and possible under or overestimation of fracture risk by FRAX. The patient should follow a healthful lifestyle (good nutrition with adequate calcium and vitamin D, and appropriate weight-bearing exercise). Follow-Up: Consider repeating this study in 2 to 3 years to reassess this patient's status, or sooner if there is some new clinical indication.
== END 2020-08-20 10:52 | disposition home or self-care (01) ==
LOC: ANHIMG 10:52
PROVIDERS: PCP Emergency Medicine; Visit Provider Emergency Medicine
DX: Z78.0 Asymptomatic menopausal state (principal); M85.88 Other specified disorders of bone density and structure, other site; M85.852 Other specified disorders of bone density and structure, left thigh; M85.851 Other specified disorders of bone density and structure, right thigh
CPT/HCPCS: 77080

== ENCOUNTER 2022-12-05 09:47 | Emergency (ER) | payer OTHER, SELFPAY ==
[2022-12-05 10:00] VITALS: BP 135/86; PULSE 64; RESP 18; O2SAT 96
--- NOTE | 2022-12-05 10:03 | ED.WOUNDLAC ---
HPI - Wound/Laceration General Chief Complaint: Wound/Laceration Stated Complaint: wound in armpit Time Seen by Provider: 12/05/22 09:50 History of Present Illness HPI narrative: 52-year-old female presents to the emergency room for evaluation of a wound to her left axillary region has been present for couple of days. Patient states that she believes it may be a spider bite. Patient denies seeing a spider bite her or was able to recover a spider. Notes swelling and redness around the area in question. Patient reports some mild clear drainage. Related Data Home Medications Medication Instructions Recorded Confirmed amlodipine 10 mg tablet 07/16/19 atorvastatin 40 mg tablet 07/16/19 hydrocodone 10 mg-acetaminophen tablet 07/16/19 325 mg tablet levothyroxine 100 mcg tablet 07/16/19 lorazepam 1 mg tablet 03/10/20 venlafaxine 150 mg mg PO 03/10/20 capsule,extended release 24 hr venlafaxine 75 mg capsule,extended mg PO 03/10/20 release 24 hr Allergies Allergy/AdvReac Type Severity Reaction Status Date / Time Sulfa (Sulfonamide Allergy Unknown Verified 06/12/20 22:06 Antibiotics) Review of Systems Review of Systems: CONSTITUTIONAL: Denies fever, chills, or sweats. EYES: Denies visual changes, redness, or discharge. ENT: Denies rhinorrhea, congestion, sore throat, or otalgia. CARDIOVASCULAR: Denies chest pain, palpitations, or edema. RESPIRATORY: Denies cough or dyspnea. GASTROINTESTINAL: Denies abdominal pain, nausea, vomiting, or diarrhea. GENITOURINARY: Denies dysuria or hematuria. SKIN: Per HPI MUSCULOSKELETAL: Denies back pain, joint pain, or myalgia. NEUROLOGIC: Denies headache, numbness, dizziness, or weakness. PSYCHIATRIC: Denies anxiety or depression. FOR[facility]LY [facility], [facility] Past Medical History Medical History Anxiety Meningioma Surgical History Surgical History H/O thyroidectomy H/O tubal ligation History of cholecystectomy Family History Family History Other Diabetes mellitus Family history of elevated blood lipids Hypertension Social History Social History Smoking status: Current every day smoker Alcohol intake: current Substance use: never Gender identity (if verbalized by the patient): Female Sexual Orientation (if Verbalized by the Patient): Straight or Heterosexual Exam Narrative: GENERAL: Well-appearing, well-nourished, no physical limitations, and in no acute distress. HEAD: Normocephalic, atraumatic. EYES: Conjunctivae normal, PERRLA and EOMI. CHEST: Clear to auscultation. No respiratory distress. No wheezes rales or rhonchi. HEART: Regular rate and rhythm. No murmur heard. Normal peripheral pulses. EXTREMITIES: Normal range of motion. No edema. No clubbing or cyanosis SKIN: left axilla: 0.5 cm ulceration with surrounding erythema and scant clear discharge with underlying induration. NEURO: No focal deficits. Alert and oriented x3. MAEW. CN's II-XI intact bilaterally, normal gait PSYCH: Cooperative. Normal mood and affect. Discharge Plan Discharge Clinical Impression: Abscess Cellulitis Qualifiers: Site of cellulitis: trunk Site of cellulitis of trunk: chest wall Qualified Code(s): L03.313 - Cellulitis of chest wall Patient Disposition: Home, Self-Care Condition: Stable Instructions: Antibiotic Form, Abscess (ED) Prescriptions: New doxycycline hyclate 100 mg capsule 100 mg PO DAILY 7 Days Qty: 7 0RF No Action atorvastatin 40 mg tablet hydrocodone-acetaminophen 10-325 mg tablet levothyroxine 100 mcg tablet amlodipine 10 mg tablet acetaminophen 500 mg capsule 500 mg PO Q6H PRN (Reason: fever or pain) Qty: 30 0RF Eliquis DVT-PE Treat 30D Start 5 mg
[2022-12-05 10:04] VITALS: TEMP 37
== END 2022-12-05 10:27 | disposition home or self-care (01) ==
LOC: ANHED 10:08
PROVIDERS: Emergency Provider Nurse Practitioner Family; PCP Internal Medicine
DX: L02.412 Cutaneous abscess of left axilla (principal); L03.112 Cellulitis of left axilla; F41.9 Anxiety disorder, unspecified; E89.0 Postprocedural hypothyroidism; Z90.49 Acquired absence of other specified parts of digestive tract; F17.200 Nicotine dependence, unspecified, uncomplicated
CPT/HCPCS: 99283